=== PATIENT | female | born 1940 | race African-American/Black ===

== ENCOUNTER 2016-12-30 11:25 | Emergency (ER) | payer OTHER ==
[~2016-12-30] VITALS: Ht 167.6 cm; Wt 56.0 kg
[~2016-12-30 11:25] MED LIST: AMLO1TAB39 PO; ATOR20TA65 PO; LISI-652 PO; POTA10TA15 PO
[2016-12-30] MEDS ORDERED: IBUPROFEN 600MG TABLET PO ONE (12:45)
[2016-12-30] MEDS ORDERED: DIAZEPAM 2 MG TABLET PO ONE (12:45)
[2016-12-30 13:01] LABS: BASOPHILS % 0.6 % (0.0-2.0); EOSINOPHILS % 0.6 % (0.0-5.0); HEMATOCRIT. 37.3 % (36.0-48.0); HEMOGLOBIN. 12.5 g/dL (12.0-16.0); LYMPHOCYTES % 15.2 % (20.0-50.0); MEAN CORPUSCULAR VOLUME 92.5 fL (81.0-99.0); MEAN PLATELET VOLUME 9.9 fl (7.4-10.4); MONOCYTES % 9.1 % (2.0-8.0); NEUTROPHILS % 74.5 % (40.0-76.0); PLATELET 158 x1000/uL (130-400); RED BLOOD CELL COUNT 4.04 mill/uL (4.2-5.4); RED CELL DISTRIBUTION WIDTH 12.8 % (11.6-14.6)
[2016-12-30 13:08] LABS: PARTIAL THROMBOPLASTIN TIME 27.5 sec (24.0-34.0)
[2016-12-30 13:13] LABS: CARBON DIOXIDE 33 mEq/L (21-32); CHLORIDE 105 mEq/L (98-107)
[2016-12-30 13:16] LABS: CREATINE KINASE 114 IU/L (26-192); TROPONIN I < 0.02 ng/mL (0.00-0.04)
[2016-12-30 14:45] VITALS: BP 159/73
== END 2016-12-30 15:10 | disposition home or self-care (01) ==
LOC: ER 11:25
DX: M62.838 Other muscle spasm (principal); M54.2 Cervicalgia; I10 Essential (primary) hypertension; Z79.899 Other long term (current) drug therapy
CPT/HCPCS: 36415; 70360; 80053; 82550; 83690; 83880; 84443; 84484; 85025; 85610; 85730; 99285

== ENCOUNTER 2017-10-10 13:36 | Emergency (ER) | payer OTHER ==
[~2017-10-10] VITALS: Ht 152.4 cm; Wt 48.0 kg
[~2017-10-10 13:36] MED LIST changes: +MEMA5TAB15 PO
[2017-10-10 14:27] VITALS: BP 173/92
[2017-10-10 16:34] LABS: BASOPHILS % 0.9 % (0.0-2.0); EOSINOPHILS % 0.3 % (0.0-5.0); HEMATOCRIT. 40.6 % (36.0-48.0); HEMOGLOBIN. 13.4 g/dL (12.0-16.0); MEAN CORPUSCULAR HEMOGLOBIN 31.3 pg (28.0-32.0); MEAN CORPUSCULAR VOLUME 94.8 fL (81.0-99.0); MEAN PLATELET VOLUME 9.9 fl (7.4-10.4); MONOCYTES % 8.2 % (2.0-8.0); NEUTROPHILS % 70.6 % (40.0-76.0); PLATELET 155 x1000/uL (130-400); RED BLOOD CELL COUNT 4.28 mill/uL (4.2-5.4); RED CELL DISTRIBUTION WIDTH 13.1 % (11.6-14.6)
[2017-10-10 16:36] LABS: PROTHROMBIN TIME 10.5 sec (9.4-11.6)
[2017-10-10 16:41] LABS: CHLORIDE 106 mEq/L (98-107)
[2017-10-10] MEDS ORDERED: ACETAMINOPHEN 325MG TABLET PO ONE (18:30)
== END 2017-10-10 19:45 | disposition home or self-care (01) ==
LOC: ER 13:36
DX: M25.552 Pain in left hip (principal); R29.810 Facial weakness; I10 Essential (primary) hypertension; F03.90 Unspecified dementia, unspecified severity, without behavioral disturbance, psychotic disturbance, mood disturbance, and anxiety; Z79.899 Other long term (current) drug therapy
CPT/HCPCS: 36415; 70450; 71045; 73502; 80053; 83880; 84484; 85025; 85610; 93005; 99285

== ENCOUNTER 2018-06-07 09:56 | Emergency (ER) | payer OTHER, MEDICAID ==
[~2018-06-07] VITALS: Ht 152.4 cm; Wt 49.0 kg
[~2018-06-07 09:56] MED LIST changes: +AMLO10TA80 MT; -AMLO1TAB39 PO; -POTA10TA15 PO; +RISP2TAB22 MT
[2018-06-07 11:23] LABS: HEMATOCRIT. 39.6 % (36.0-48.0); HEMOGLOBIN. 13.2 g/dL (12.0-16.0); MEAN CORPUSCULAR HEMOGLOBIN 31.1 pg (28.0-32.0); MEAN CORPUSCULAR VOLUME 93.2 fL (81.0-99.0); PLATELET 209 x1000/uL (130-400); RED BLOOD CELL COUNT 4.25 mill/uL (4.2-5.4); RED CELL DISTRIBUTION WIDTH 12.7 % (11.6-14.6)
[2018-06-07 11:33] LABS: CHLORIDE 104 mEq/L (98-107)
[2018-06-07 12:19] LABS: PLATELET ESTIMATE NORMAL
[2018-06-07] MEDS ORDERED: ACETAMINOPHEN 325MG TABLET PO STA (12:49)
[2018-06-07] MEDS ORDERED: BACITRACIN ZINC OINT UDPKT TOP ONE (13:45)
[2018-06-07 13:47] VITALS: BP 144/74
== END 2018-06-07 13:50 | disposition home or self-care (01) ==
LOC: ER 12:57
DX: S00.01XA Abrasion of scalp, initial encounter (principal); W06.XXXA Fall from bed, initial encounter; Y93.84 Activity, sleeping; Y92.092 Bedroom in other non-institutional residence as the place of occurrence of the external cause
CPT/HCPCS: 36415; 71045; 80048; 93005; 99285